=== PATIENT | female | born 1985 | race Caucasian/White ===

== ENCOUNTER 2018-02-08 15:58 | Emergency (ER) | payer OTHER ==
[2018-02-08] MEDS ORDERED: ACETAMINOPHEN TAB 500 MG TAB PO STA (16:14)
[2018-02-08] MEDS ORDERED: IBUPROFEN 800 MG TAB PO STA (16:14)
[2018-02-08] MEDS ORDERED: LIDOCAINE 1%-EPI 1:100,000 20 ML VIAL SQ ONE (16:14)
--- NOTE | 2018-02-08 16:23 | ED ---
General Adult HPI - General Chief complaint: Skin/Abscess/Foreign Body Stated complaint: Abscess Time Seen by Provider: 02/08/18 16:08 Source: patient Mode of arrival: ambulatory Limitations: no limitations - History of Present Illness Initial comments: patient is a 32 year old female who presents with a CC of an abscess in her vaginal area. she states this started on friday and gradually became worse. she states that when she got in the car today to come to the ED, she thinks it popped. she denies fever, chills, N/V, vaginal discharge or bleeding. she cannot report an inciting incident, pain aggravated by moving and sitting, alleviated with rest, and warm compresses. - Related Data Previous Rx's Medication Instructions Recorded Amoxic-Pot Clav 875-125Mg 1 tab PO Q12HR 7 Days tablet 02/23/16 [Augmentin 875-125] HYDROcodone/APAP 5-325MG [Perdido 1 tab PO Q6HR #12 tab 02/23/16 5-325] Ondansetron Odt [Zofran Odt] 4 mg PO Q12HR #6 tab 02/23/16 Acetaminophen Tab [Tylenol Tab] 1,000 mg PO Q6HR #24 tablet 02/08/18 Ibuprofen [Motrin] 800 mg PO Q6H #12 tab 02/08/18 Allergies Allergy/AdvReac Type Severity Reaction Status Date / Time codeine Allergy Nausea & Verified 02/08/18 16:03 Vomiting & Diarrhea Review of Systems ROS Statement: Those systems with pertinent positive or pertinent negative responses have been documented in the HPI. ROS Other: All systems not noted in ROS Statement are negative. Skin: Reports: lesions Past Medical History Past Medical History: No Reported History History of Any Multi-Drug Resistant Organisms: None Reported Past Surgical History: Tubal Ligation Past Psychological History: No Psychological Hx Reported Smoking Status: Current every day smoker Past Alcohol Use History: Occasional Past Drug Use History: None Reported General Exam Limitations: no limitations General appearance: alert, in no apparent distress Head exam: Present: atraumatic, normocephalic Eye exam: Present: normal appearance ENT exam: Present: normal exam Neck exam: Present: normal inspection. Absent: tenderness Respiratory exam: Present: normal lung sounds bilaterally. Absent: respiratory distress, wheezes Cardiovascular Exam: Present: regular rate, normal rhythm GI/Abdominal exam: Present: soft. Absent: distended, tenderness Rectal exam: Present: deferred, normal inspection External exam: Present: erythema, swelling, lesions (patient has a 3x3 cm abscess at the inferior aspect of her right labia majora. no extension to the rectum or to the vaginal canal. ) Extremities exam: Present: normal inspection Back exam: Present: normal inspection Neurological exam: Present: alert, oriented X3 Psychiatric exam: Present: normal affect, normal mood Skin exam: Present: warm, dry, intact Course Vital Signs 02/08/18 16:00 Temperature 98.4 F Pulse Rate 123 H Respiratory 20 Rate Blood Pressure 120/80 O2 Sat by Pulse 98 Oximetry Procedures - Incision & Drainage Consent Obtained: verbal consent Time Out Performed?: Yes Site: vulva/vagina Anesthetic Used: lidocaine 1%, with epi Sterile Field Used?: No Scalpel Used: #15 Needle Aspiration Performed?: No Irrigation Performed?: Yes (copius jet irrigation ) I&D Drainage Obtained: Pus, Blood Packing: Plain Culture Obtained?: No Complications: pain Patient Tolerated Procedure: well Medical Decision Making - Medical Decision Making patient presents with a CC of an abscess on her vagina. initial VS show tachycardia but are otherwise stable. patient in no distress. HR normal on examination. patient given motrin and tylenol for pain. ZULMA Garner present during vaginal exam. exam reveals a 3x3 abscess, draining, on the right inferior labia majora. I&D performed according to procedure note. patient tolerated well. plain gauze packed, patient stable for discharge. she was instructed to remove packing tomorrow, follow up with [facility] in 1-2 days, return to the ED if sx worsen or change. motrin and tylenol instructed for pain. Disposition Clinical Impression: Abscess Disposition: HOME SELF-CARE Condition: Good Instructions: Abscess Incision and Drainage (ED) Is patient prescribed a controlled substance at d/c from ED?: No Referrals: None,Stated [Primary Care Provider] - 1-2 days Aria Richter MD [STAFF PHYSICIAN] - 1-2 days
[2018-02-08 17:12] VITALS: BP 102/74; PULSE 94; RESP 18; TEMP 98
== END 2018-02-08 17:11 | disposition home or self-care (01) ==
LOC: EC 15:58
DX: N76.4 Abscess of vulva (principal); F17.200 Nicotine dependence, unspecified, uncomplicated; Z88.5 Allergy status to narcotic agent
CPT/HCPCS: 56405; 99283

== ENCOUNTER 2018-05-30 10:32 | Emergency (ER) | payer OTHER ==
[2018-05-30 10:40] VITALS: RESP 18; TEMP 98.6
[2018-05-30] MEDS ORDERED: SODIUM CHLORIDE 0.9% 1,000 ML IV STA (10:51)
[2018-05-30] MEDS ORDERED: KETOROLAC 30 MG/ML 1 ML VIAL IVP STA (10:51)
[2018-05-30] MEDS ORDERED: diphenhydrAMINE 50 MG/ML 1 ML VIAL IVP STA (10:51)
[2018-05-30] MEDS ORDERED: METOCLOPRAMIDE 5 MG/ML 2 ML VIAL IVP STA (10:51)
--- NOTE | 2018-05-30 10:56 | ED ---
General Adult HPI - General Chief complaint: Headache Stated complaint: Headache Time Seen by Provider: 05/30/18 10:43 Source: patient, RN notes reviewed Mode of arrival: ambulatory Limitations: no limitations - History of Present Illness Initial comments: This is a 34-year-old female presents emergency Department with chief complaint of headache, jaundice feel well. Patient states that she had right flank pain earlier this week and states that she was seen at [facility] and was diagnosed with a urinary tract infection. She had no dysuria or urinary frequency just flank pain. She does have a history kidney stones. Patient was placed on Bactrim and states ever since she started the Bactrim she's had a persistent headache. Patient states he feels like sinus pressure but states that it's not alleviated with Zyrtec. Patient denies any known fever but states that she's had cold sweats. Denies chest pain or shortness breath. Patient states that she has not taken concurrently for her headaches though she does have a history of migraines. Denies any focal weakness denies any neck pain or neck stiffness. Patient does admit to photophobia. - Related Data Home Medications Medication Instructions Recorded Confirmed Acetaminophen [Tylenol] 325 - 650 mg PO Q4H PRN 02/08/18 02/08/18 Ibuprofen [Motrin Ib] 200 - 400 mg PO Q6H PRN 02/08/18 02/08/18 Previous Rx's Medication Instructions Recorded Acetaminophen Tab [Tylenol Tab] 1,000 mg PO Q6HR #24 tablet 02/08/18 Ibuprofen [Motrin] 800 mg PO Q6H #12 tab 02/08/18 Cephalexin [Keflex] 500 mg PO Q8HR #21 cap 05/30/18 Ketorolac [Toradol] 10 mg PO Q8HR #15 tab 05/30/18 Allergies Allergy/AdvReac Type Severity Reaction Status Date / Time codeine AdvReac Nausea & Verified 05/30/18 10:40 Vomiting & Diarrhea Review of Systems ROS Statement: Those systems with pertinent positive or pertinent negative responses have been documented in the HPI. ROS Other: All systems not noted in ROS Statement are negative. Past Medical History Past Medical History: No Reported History Additional Past Medical History / Comment(s): migraines History of Any Multi-Drug Resistant Organisms: None Reported Past Surgical History: Tubal Ligation Past Psychological History: No Psychological Hx Reported Smoking Status: Current every day smoker Past Alcohol Use History: Occasional Past Drug Use History: None Reported General Exam Limitations: no limitations General appearance: alert, in no apparent distress Head exam: Present: atraumatic, normocephalic, normal inspection Eye exam: Present: normal appearance, PERRL, EOMI. Absent: scleral icterus, conjunctival injection, periorbital swelling ENT exam: Present: normal exam, normal oropharynx, mucous membranes moist, TM's normal bilaterally Neck exam: Present: normal inspection, full ROM. Absent: tenderness, meningismus, lymphadenopathy Respiratory exam: Present: normal lung sounds bilaterally. Absent: respiratory distress, wheezes, rales, rhonchi, stridor Cardiovascular Exam: Present: normal rhythm, tachycardia, normal heart sounds. Absent: systolic murmur, diastolic murmur, rubs, gallop, clicks GI/Abdominal exam: Present: soft, normal bowel sounds. Absent: distended, tenderness, guarding, rebound, rigid Neurological exam: Present: alert, oriented X3, CN II-XII intact, reflexes normal, other (Finger to nose intact bilaterally without over shooting). Absent: motor sensory deficit Skin exam: Present: warm, dry, intact, normal color. Absent: rash Course Vital Signs 05/30/18 10:38 Temperature 98.6 F Pulse Rate 108 H Respiratory 18 Rate Blood Pressure 109/76 O2 Sat by Pulse 98 Oximetry Medical Decision Making - Medical Decision Making 33-year-old female presented for headache, not feeling well. Lab work is unremarkable urinalysis shows evidence urinary tract infection. Patient does have difficulty taking the Bactrim. Patient will be given Rocephin emergency from discharge and Keflex urine culture was ordered. Headache has resolved. - Lab Data Result diagrams: 05/30/18 11:00 05/30/18 11:00 Lab Results 05/30/18 05/30/18 05/30/18 Range/Units 11:00 11:00 11:00 WBC 6.8 (3.8-10.6) k/uL RBC 4.88 (3.80-5.40) m/uL Hgb 14.1 (11.4-16.0) gm/dL Hct 42.2 (34.0-46.0) % MCV 86.5 (80.0-100.0) fL MCH 28.9 (25.0-35.0) pg MCHC 33.4 (31.0-37.0) g/dL RDW 14.0 (11.5-15.5) % Plt Count 295 (150-450) k/uL Neutrophils % 66 % Lymphocytes % 19 % Monocytes % 11 % Eosinophils % 2 % Basophils % 0 % Neutrophils # 4.5 (1.3-7.7) k/uL Lymphocytes # 1.3 (1.0-4.8) k/uL Monocytes # 0.8 (0-1.0) k/uL Eosinophils # 0.1 (0-0.7) k/uL Basophils # 0.0 (0-0.2) k/uL Sodium 138 (137-145) mmol/L Potassium 3.9 (3.5-5.1) mmol/L Chloride 102 (98-107) mmol/L Carbon Dioxide 24 (22-30) mmol/L Anion Gap 12 mmol/L BUN 10 (7-17) mg/dL Creatinine 0.75 (0.52-1.04) mg/dL Est GFR (CKD-EPI)AfAm >90 (>60 ml/min/1.73 sqM) Est GFR (CKD-EPI)NonAf >90 (>60 ml/min/1.73 sqM) Glucose 96 (74-99) mg/dL Calcium 9.1 (8.4-10.2) mg/dL Total Bilirubin 0.7 (0.2-1.3) mg/dL AST 15 (14-36) U/L ALT 34 (9-52) U/L Alkaline Phosphatase 121 (38-126) U/L Total Protein 7.0 (6.3-8.2) g/dL Albumin 3.8 (3.5-5.0) g/dL Urine Color Urine Appearance (Clear) Urine pH (5.0-8.0) Ur Specific [place] (1.001-1.035) Urine Protein (Negative) Urine Glucose (UA) (Negative) Urine Ketones (Negative) Urine Blood (Negative) Urine Nitrite (Negative) Urine Bilirubin (Negative) Urine Urobilinogen (<2.0) mg/dL Ur Leukocyte Esterase (Negative) Urine RBC (0-5) /hpf Urine WBC (0-5) /hpf Ur Squamous Epith Cells (0-4) /hpf Amorphous Sediment (None) /hpf Urine Bacteria (None) /hpf Urine Mucus (None) /hpf Influenza Type A RNA Not Detected (Not Detectd) Influenza Type B (PCR) Not Detected (Not Detectd) 05/30/18 Range/Units 11:30 WBC (3.8-10.6) k/uL RBC (3.80-5.40) m/uL Hgb (11.4-16.0) gm/dL Hct (34.0-46.0) % MCV (80.0-100.0) fL MCH (25.0-35.0) pg MCHC (31.0-37.0) g/dL RDW (11.5-15.5) % Plt Count (150-450) k/uL Neutrophils % % Lymphocytes % % Monocytes % % Eosinophils % % Basophils % % Neutrophils # (1.3-7.7) k/uL Lymphocytes # (1.0-4.8) k/uL Monocytes # (0-1.0) k/uL Eosinophils # (0-0.7) k/uL Basophils # (0-0.2) k/uL Sodium (137-145) mmol/L Potassium (3.5-5.1) mmol/L Chloride (98-107) mmol/L Carbon Dioxide (22-30) mmol/L Anion Gap mmol/L BUN (7-17) mg/dL Creatinine (0.52-1.04) mg/dL Est GFR (CKD-EPI)AfAm (>60 ml/min/1.73 sqM) Est GFR (CKD-EPI)NonAf (>60 ml/min/1.73 sqM) Glucose (74-99) mg/dL Calcium (8.4-10.2) mg/dL Total Bilirubin (0.2-1.3) mg/dL AST (14-36) U/L ALT (9-52) U/L Alkaline Phosphatase (38-126) U/L Total Protein (6.3-8.2) g/dL Albumin (3.5-5.0) g/dL Urine Color Yellow Urine Appearance Cloudy H (Clear) Urine pH 6.5 (5.0-8.0) Ur Specific [place] 1.015 (1.001-1.035) Urine Protein 1+ H (Negative) Urine Glucose (UA) Negative (Negative) Urine Ketones Negative (Negative) Urine Blood Small H (Negative) Urine Nitrite Positive H (Negative) Urine Bilirubin Negative (Negative) Urine Urobilinogen 2.0 (<2.0) mg/dL Ur Leukocyte Esterase Large H (Negative) Urine RBC 13 H (0-5) /hpf Urine WBC 103 H (0-5) /hpf Ur Squamous Epith Cells 6 H (0-4) /hpf Amorphous Sediment Occasional H (None) /hpf Urine Bacteria Many H (None) /hpf Urine Mucus Occasional H (None) /hpf Influenza Type A RNA (Not Detectd) Influenza Type B (PCR) (Not Detectd) Disposition Clinical Impression: Migraine, UTI (urinary tract infection) Disposition: HOME SELF-CARE Condition: Stable Instructions (If sedation given, give patient instructions): Acute Headache (ED) Additional Instructions: Please return to the Emergency Department if symptoms worsen or any other concerns. Prescriptions: Cephalexin [Keflex] 500 mg PO Q8HR #21 cap Ketorolac [Toradol] 10 mg PO Q8HR #15 tab Is patient prescribed a controlled substance at d/c from ED?: No Referrals: Emre Ferreira MD [Primary Care Provider] - 1-2 days Time of Disposition: 12:26
[2018-05-30 11:19] LABS: Basophils % (A) 0 %; Eosinophils # (A) 0.1 k/uL (0-0.7); Eosinophils % (A) 2 %; HCT 42.2 % (34.0-46.0); HGB 14.1 gm/dL (11.4-16.0); Lymphocytes # (A) 1.3 k/uL (1.0-4.8); Lymphocytes % (A) 19 %; MCH 28.9 pg (25.0-35.0); MCHC 33.4 g/dL (31.0-37.0); MCV 86.5 fL (80.0-100.0); Monocytes # (A) 0.8 k/uL (0-1.0); Monocytes % (A) 11 %; Neutrophils # (A) 4.5 k/uL (1.3-7.7); Neutrophils % (A) 66 %; Platelet Count 295 k/uL (150-450); RBC 4.88 m/uL (3.80-5.40); WBC 6.8 k/uL (3.8-10.6)
[2018-05-30 11:28] LABS: ALT 34 U/L (9-52); AST 15 U/L (14-36); Albumin 3.8 g/dL (3.5-5.0); Alkaline Phosphatase 121 U/L (38-126); Anion Gap 12 mmol/L; Blood Urea Nitrogen 10 mg/dL (7-17); Calcium 9.1 mg/dL (8.4-10.2); Carbon Dioxide 24 mmol/L (22-30); Chloride 102 mmol/L (98-107); Glucose 96 mg/dL (74-99); Potassium 3.9 mmol/L (3.5-5.1); Sodium 138 mmol/L (137-145); Total Bilirubin 0.7 mg/dL (0.2-1.3)
[2018-05-30 12:20] LABS: Amorphous Sediment,Urine Occasional /hpf; Appearance,Urine Cloudy (Clear); Bacteria,Urine Many /hpf; Bilirubin,Urine Negative (Negative); Blood,Urine Small (Negative); Color,Urine Yellow; Glucose,Urine (UA) Negative (Negative); Ketones,Urine Negative (Negative); Leukocyte Esterase,Urine Large (Negative); Mucus,Urine Occasional /hpf; Nitrite,Urine Positive (Negative); PH, Urine 6.5 (5.0-8.0); Protein,Urine 1+ (Negative); RBC,Urine 13 /hpf (0-5); Specific Gravity,Urine 1.015 (1.001-1.035); Squamous Epithelial Cell,Urine 6 /hpf (0-4)
[2018-05-30] MEDS ORDERED: cefTRIAXone IN SWFI 1,000 MG/10 ML SYRINGE IVP STA (12:25)
[2018-05-30 13:15] VITALS: BP 99/69; PULSE 90
== END 2018-05-30 12:20 | disposition home or self-care (01) ==
LOC: EC 10:32
DX: G43.909 Migraine, unspecified, not intractable, without status migrainosus (principal); N39.0 Urinary tract infection, site not specified; F17.200 Nicotine dependence, unspecified, uncomplicated; Z88.5 Allergy status to narcotic agent
CPT/HCPCS: 36415; 80053; 85025; 81001; 87086; 87502; 99283; 96374; 96375 ×3; 96361; J1200; J2765; J0696; J1885; 87077; 87186

== ENCOUNTER 2019-01-01 08:47 | Emergency (ER) | payer OTHER ==
[2019-01-01] MEDS ORDERED: LIDOCAINE 1% INJ 10MG/ML (20 ML MDV) SQ ONE (09:10)
--- NOTE | 2019-01-01 09:54 | ED ---
Skin/Abscess/FB HPI - General Chief complaint: Skin/Abscess/Foreign Body Stated complaint: FEMALE , CYST Time Seen by Provider: 01/01/19 08:56 Source: patient Mode of arrival: ambulatory Limitations: no limitations - History of Present Illness Initial comments: 33yo female with no past medical history presenting today for chief complaint of Bartholin's cyst. Patient states that she has had swelling in her left side of her labia more internally she states is painful and red. Denies spontaneous drainage. Patient states she looked up her symptoms online and states additionally she has a Bartholin abscess. Patient states is painful to touch denies fevers or flu like symptoms. Denies vaginal discharge vaginal orders or concern for sexual transmitted diseases. Patient denies or abdominal pain. Patient has no other complaints. Patient states she has expressed this in the past when she had small bumps however they went away on their own within 2-3 days. Remaining abuse is negative. Upon arrival patient appears well signs of distress. - Related Data Previous Rx's Medication Instructions Recorded Cefixime [Suprax] 400 mg PO DAILY 7 Days #7 cap 01/01/19 Clindamycin [Cleocin] 300 mg PO Q6H 7 Days #56 capsule 01/01/19 Allergies Allergy/AdvReac Type Severity Reaction Status Date / Time codeine AdvReac Nausea & Verified 01/01/19 09:11 Vomiting & Diarrhea Review of Systems ROS Statement: Those systems with pertinent positive or pertinent negative responses have been documented in the HPI. ROS Other: All systems not noted in ROS Statement are negative. Past Medical History Past Medical History: No Reported History Additional Past Medical History / Comment(s): migraines History of Any Multi-Drug Resistant Organisms: None Reported Past Surgical History: Tubal Ligation Past Psychological History: No Psychological Hx Reported Smoking Status: Current every day smoker Past Alcohol Use History: Occasional Past Drug Use History: None Reported General Exam - General Exam Comments Initial Comments: General: The patient is awake and alert, in no distress, and does not appear acutely ill. Eye: Pupils are equal, round and reactive to light, extra-ocular movements are intact. No nystagmus. There is normal conjunctiva bilaterally. No signs of i cterus. Cardiovascular: There is a regular rate and rhythm. No murmur, rub or gallop is appreciated. Respiratory: Lungs are clear to auscultation, respirations are non-labored, breath sounds are equal. No wheezes, stridor, rales, or rhonchi. Gastrointestinal: Soft, non-distended, non-tender abdomen without masses or o rganomegaly noted. There is no rebound or guarding present. At the 5 o'clock position there is a 2 x 2 centimeter painful swollen fluctuant red abscess near the introitus. No vaginal discharge or orders appreciated. [place] well rugated vaginal mucosa. Musculoskeletal: Normal ROM, no tenderness. Strength 5/5. Sensation intact. Radial pulses equal bilaterally 2+. Neurological: A&O x 3. CN II-XII intact grossly, There are no obvious motor or sensory deficits. Coordination appears grossly intact. Speech is normal. Skin: Skin is warm and dry and no rashes or lesions are noted. Psychiatric: Cooperative, appropriate mood & affect, normal judgment. Limitations: no limitations Course Vital Signs 01/01/19 08:51 Temperature 98 F Pulse Rate 77 Respiratory 20 Rate Blood Pressure 110/60 O2 Sat by Pulse 98 Oximetry Procedures - Incision & Drainage Consent Obtained: verbal consent Indication: Bartholin abscess Site: vulva/vagina Size (cm): 2 Anesthetic Used: lidocaine 1% Amount (mLs): 1 I&D Cleaning Method: Iodine Sterile Field Used?: No Scalpel Used: #11 Needle Aspiration Performed?: Yes (Purulent) Irrigation Performed?: No I&D Drainage Obtained: Pus, Blood Culture Obtained?: Yes Patient Tolerated Procedure: well, no complications Medical Decision Making - Medical Decision Making 33-year-old female presents emergency room for Bartholin's cyst. This was drained. No signs of local cellulitis. Her systemic spread of infection. Patient had relief after drainage. Cultures pending. Given the size of a small incision I do not feel packing is appropriate this time. Patient be discharged with antibiotic regimen and instructed to perform sitz baths and abstain from vaginal intercourse. Her parameters importance of follow-up or discuss patient was discharged appearing well to discuss the case with attending provider Dr. Praveen Lopez Clinical Impression: Bartholin's gland abscess Disposition: HOME SELF-CARE Condition: Good Instructions (If sedation given, give patient instructions): Abscess Incision and Drainage (ED), Bartholin Cyst (ED) Additional Instructions: Please use medication as discussed. Please follow-up with family doctor or OBGYN in the next 2 days. Please return to emergency room if the symptoms increase or worsen or for any other concerns. Prescriptions: Clindamycin [Cleocin] 300 mg PO Q6H 7 Days #56 capsule Cefixime [Suprax] 400 mg PO DAILY 7 Days #7 cap Is patient prescribed a controlled substance at d/c from ED?: No Referrals: Emre Ferreira MD [Primary Care Provider] - 1-2 days Time of Disposition: 09:53
[2019-01-01 10:16] VITALS: BP 117/89; PULSE 79; RESP 19; TEMP 98.1
== END 2019-01-01 10:16 | disposition home or self-care (01) ==
LOC: EC 08:47
DX: N75.1 Abscess of Bartholin's gland (principal); F17.200 Nicotine dependence, unspecified, uncomplicated; Z88.5 Allergy status to narcotic agent
CPT/HCPCS: 87070; 87205; 56420; 99283; J2001